=== PATIENT | male | born 2000 ===

== ENCOUNTER 2023-07-20 19:59 | Outpatient (REF) | payer OTHER, SELFPAY ==
[2023-07-24 11:39] LABS: Hemoglobin S Screen Negative (Negative)
== END 2023-07-20 20:00 | disposition home or self-care (01) ==
LOC: LBN 19:59
PROVIDERS: Visit Provider Physician Assistant Medical
DX: Z13.0 Encounter for screening for diseases of the blood and blood-forming organs and certain disorders involving the immune mechanism (principal)
CPT/HCPCS: 85660